=== PATIENT | female | born 1950 | race Caucasian/White ===

== ENCOUNTER → 2016-07-26 | Outpatient (CLI) | payer OTHER, BC ==
[~2016-07-26] MED LIST: ANT25 PO; CEPH500C PO; EPP3 IM; EPP3/2 IM; EVS60 PO; LEVO75TA5 PO; MECL-91 PO; NITR-5 PO; PHEN-876 PO; PRLSR20 PO; RALO60TA30 PO; SYN75 PO; TIMO0.5S2 OPB
--- NOTE | 2016-07-27 13:16 | MAMMOGRAPHY REPORT ---
BILATERAL DIGITAL SCREENING MAMMOGRAM TOMOSYNTHESIS WITH CAD: 07/26/2016 CLINICAL HISTORY: Asymptomatic. Personal history of breast cancer. TECHNIQUE: Breast tomosynthesis in addition to standard 2D mammography was performed. Current study was also evaluated with a Computer Aided Detection (CAD) system. COMPARISON: Comparison is made to exams dated: 07/22/2015 mammogram, 05/28/2014 mammogram, 05/25/2013 mammogram, 04/03/2012 mammogram, 04/02/2011 ultrasound, and 04/02/2011 mammogram - [facility]. BREAST COMPOSITION: The tissue of both breasts is extremely dense, which lowers the sensitivity of mammography. FINDINGS: There is expected architectural distortion in the upper outer posterior left breast, at th e site of prior lumpectomy. There are scattered stable benign-appearing microcalcifications. No ne w suspicious mass, architectural distortion or cluster of microcalcifications is seen. IMPRESSION: ACR BI-RADS CATEGORY 1: NEGATIVE There is no mammographic evidence of malignancy. A 1 year screening mammogram is recommended. The p atient will receive written notification of the results. Approximately 10% of breast cancers are not detected with mammography. A negative mammographic repor t should not delay biopsy if a clinically suggestive mass is present. Rima Hinds M.D. ay/:07/26/2016 21:46:23 Harness Cutter: Denise ALVAREZ(Mike)(Elizabeth), letter sent: Normal 1/2 BI-RADS Code: ACR BI-RADS Category 1: Negative
== END | disposition home or self-care (01) ==
LOC: C.MAMM 08:10
PROVIDERS: ATTEND Family Medicine
DX: Z12.31 Encounter for screening mammogram for malignant neoplasm of breast (principal); Z85.3 Personal history of malignant neoplasm of breast

== ENCOUNTER 2016-08-11 08:41 | Emergency (ER) | payer OTHER, BC ==
[~2016-08-11 08:41] MED LIST changes: -EPP3/2 IM; -LEVO75TA5 PO; -MECL-91 PO; -RALO60TA30 PO; -TIMO0.5S2 OPB
[2016-08-11 08:43] VITALS: TEMP 36.6; Ht 149.9 cm
--- NOTE | 2016-08-11 09:07 | EMERGENCY ROOM VISIT NOTE ---
History Report prepared by Lakeibabhijit: Manuel Jeter Under the Supervision of: Dr. Katie Carbone M.D. First contact with patient: 08:53 Chief Complaint: KNEEPAIN Stated Complaint: LEFT KNEE PAIN History of Present Illness The patient is a 66 year old female who presents to the Emergency Room with complaints of an acute left knee injury that occurred this morning. The patient was running when she felt a "pop" in the left knee. She has since had pain rated 5/10 in severity. The patient did not fall or twist the knee in any way. The patient is s/p meniscus surgery of the left knee. The patient does not run often but she is an avid walker. Source of History: patient Onset: this morning Position: knee (left) Symptom Intensity: 5/10 Quality: other (injury) Timing: other (acute) Review of Systems See HPI for pertinent positives & negatives. A total of 6 systems reviewed and were otherwise negative. Past Medical & Surgical Medical Problems: (1) History of torn meniscus of left knee Family History Cancer Social History Smoking Status: Never Smoker Alcohol Use: none Housing Status: lives alone Occupation Status: employed Current/Historical Medications Scheduled Epinephrine (Epipen), 0.3 MG IM UD Levothyroxine Sodium (Levothyroxine Sodium), 1 TAB PO DAILY Omeprazole (Prilosec), 20 MG PO DAILY Phenazopyridine HCl (Pyridium), 200 MG PO TID Raloxifene Hcl (Evista), 60 MG PO DAILY Timolol Maleate (Ophth) (Timoptic-Xe 0.5% Oph), 1 DROPS OPB QAM Scheduled PRN Meclizine HCl (Meclizine 25), 1 TAB PO for Dizziness or Vertigo Allergies Coded Allergies: Aminoglycosides (Unverified Allergy, Mild, 08/11/16) BEE STING (Unverified Allergy, Mild, 08/11/16) Latex1 -Allergic Contact Dermititis (Unverified Allergy, Mild, 08/11/16) Nitrates, Organic (Unverified Allergy, Mild, 08/11/16) Nitrofurantoin (Unverified Allergy, Mild, 08/11/16) Penicillins (Unverified Allergy, Mild, 08/11/16) Quinolones (Unverified Allergy, Mild, 08/11/16) Sulfa Drugs (Unverified Allergy, Unknown, 08/11/16) Uncoded Allergies: NOVACAINE (Allergy, Mild, 08/18/07) ERYTHEMA OPTH (Allergy, Unknown, 12/27/04) Physical Exam Vital Signs Date Time Temp Pulse Resp B/P (MAP) Pulse Ox O2 Delivery O2 Flow Rate FiO2 08/11/16 11:14 75 16 139/64 98 08/11/16 10:23 74 14 156/82 98 Room Air 08/11/16 08:43 36.6 73 18 145/76 97 Room Air Physical Exam Vital signs reviewed. General: Well-appearing female, in no significant distress. Musculoskeletal: Tender along the medial joint line with no appreciable laxity to anterior drawer, no valgus or varus stress, no appreciable tenderness to the patella, no large effusion, full extension and flexion. Neurologic: Patient awake alert and oriented x 3 Skin: Warm, dry, no rash Medical Decision & Procedures ER Provider Diagnostic Interpretation: X-ray results as stated below per interpretation by me and the radiologist: LEFT KNEE 1 OR 2 VIEWS ROUTINE CLINICAL HISTORY: Left knee pain. COMPARISON: Left knee radiographs July 03, 2007. FINDINGS: Alignment of the left knee is anatomic. There is a small left knee joint effusion. Joint spaces are preserved. There is mild osteophytosis within the medial compartment. There is no fracture or suspicious lesion. IMPRESSION: 1. Small left knee joint effusion. 3. 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 Electronically signed by: Rubio Paiz M.D. 08/11/2016 10:10 AM Dictated Date/Time: 08/11/2016 10:09 AM ED Course 0900: Past medical records reviewed. The patient was evaluated in room A10. A complete history and physical examination was performed. 1100: Reassessed the patient. Discussed the findings and discharge instructions with her. She verbalized understanding and agreement. The patient is ready for discharge. Medical Decision Differential diagnosis: Etiologies such as fracture, dislocation, neurovascular compromise, compartment syndrome, soft tissue injury, as well as others were entertained. Blood Pressure Screening: Patient was found to have a mildly elevated blood pressure and was referred to their primary doctor for recheck and further treatment. Medication Reconciliation: I attest that I have personally reviewed the patient' s current medication list. This pt was evaluated and appeared to be in no distress. PE reveals a mild tenderness along the medical joint line. XR was obtained and reveals a small effusion and degenerative changes in the medial compartment. Pt was placed in a knee immobilizer and advised to ice and elevate the leg. An appt was made in f/u with Dr Fierro. She will return to the ED for worsening of symptoms or any medical concerns. Impression Primary Impression: Effusion of knee joint, left Scribe Attestation The scribe's documentation has been prepared under my direction and personally reviewed by me in its entirety. I confirm that the note above accurately reflects all work, treatment, procedures, and medical decision making performed by me. Departure Information Dispostion Home / Self-Care Referrals Owen Lombardo M.D. (PCP) Forms HOME CARE DOCUMENTATION FORM, IMPORTANT VISIT INFORMATION Patient Instructions My [facility] Additional Instructions Diagnosis: Left knee effusion Wear the knee immobilizer while on your feet. Ibuprofen 600 mg every 6 hours as needed for pain. Ice and elevate the leg as much as possible. Follow-up with orthopedic surgery as scheduled by case management. Return to the ER for worsening of symptoms or any medical concerns.
[2016-08-11] MEDS ORDERED: EPP3/2 IM (09:29)
[2016-08-11] MEDS ORDERED: LEVO75TA5 PO (09:29)
[2016-08-11] MEDS ORDERED: TIMO0.5S2 OPB (09:29)
[2016-08-11] MEDS ORDERED: MECL-91 PO (09:29)
[2016-08-11] MEDS ORDERED: RALO60TA30 PO (09:29)
--- NOTE | 2016-08-11 10:11 | DIAGNOSTIC IMAGING REPORT ---
LEFT KNEE 1 OR 2 VIEWS ROUTINE CLINICAL HISTORY: Left knee pain. COMPARISON: Left knee radiographs July 03, 2007. FINDINGS: Alignment of the left knee is anatomic. There is a small left knee joint effusion. Joint spaces are preserved. There is mild osteophytosis within the medial compartment. There is no fracture or suspicious lesion. IMPRESSION: 1. Small left knee joint effusion. 3. 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 Electronically signed by: Rubio Paiz M.D. 08/11/2016 10:10 AM Dictated Date/Time: 08/11/2016 10:09 AM
[2016-08-11 11:14] VITALS: BP 139/64; PULSE 75; O2SAT 98
== END 2016-08-11 11:05 | disposition home or self-care (01) ==
LOC: C.EDB 08:43 → C.EDA 11:05
DX: M25.462 Effusion, left knee (principal); Z80.9 Family history of malignant neoplasm, unspecified; Z79.899 Other long term (current) drug therapy

== ENCOUNTER → 2017-07-28 | Outpatient (CLI) | payer OTHER, BC ==
[~2017-07-28] MED LIST changes: -ANT25 PO; -CEPH500C PO; -EPP3 IM; +EPP3/2 IM; -EVS60 PO; +LEVO75TA5 PO; +MECL-91 PO; -NITR-5 PO; +RALO60TA30 PO; -SYN75 PO; +TIMO0.5S2 OPB
--- NOTE | 2017-07-28 15:34 | MAMMOGRAPHY REPORT ---
BILATERAL DIGITAL SCREENING MAMMOGRAM TOMOSYNTHESIS WITH CAD: 07/28/2017 CLINICAL HISTORY: Asymptomatic. Personal history of breast cancer. TECHNIQUE: Breast tomosynthesis in addition to standard 2D mammography was performed. Current study was also evaluated with a Computer Aided Detection (CAD) system. COMPARISON: Comparison is made to exams dated: 07/26/2016 mammogram, 07/22/2015 mammogram, 05/28/2014 m ammogram, 05/25/2013 mammogram, 04/03/2012 mammogram, and 03/25/2010 mammogram - [facility]. BREAST COMPOSITION: The tissue of both breasts is extremely dense, which lowers the sensitivity of m ammography. FINDINGS: No suspicious masses, calcifications, or areas of architectural distortion are noted in ei ther breast. There has been no significant interval change compared to prior exams. Scattered bilater al benign-appearing calcifications are not significantly changed. There are stable postsurgical urban ges in the left upper outer quadrant posteriorly from prior lumpectomy. A linear scar marker denotes a scar on the left upper outer breast. IMPRESSION: ACR BI-RADS CATEGORY 2: BENIGN There is no mammographic evidence of malignancy. A 1 year screening mammogram is recommended. The pa tient will receive written notification of the results. Approximately 10% of breast cancers are not detected with mammography. A negative mammographic report should not delay biopsy if a clinically suggestive mass is present. Fariba Salgado M.D. /:07/28/2017 08:49:04 Lmsw: Gail ALFREDO)(Elizabeth), [facility] letter sent: Normal 1/2 BI-RADS Code: ACR BI-RADS Category 2: Benign
== END | disposition home or self-care (01) ==
LOC: C.MAMM 08:06
PROVIDERS: ATTEND Family Medicine
DX: Z12.31 Encounter for screening mammogram for malignant neoplasm of breast (principal); Z85.3 Personal history of malignant neoplasm of breast